=== PATIENT | male | born 1950 | race Caucasian/White ===

== ENCOUNTER 2018-04-15 04:52 | Inpatient (IN) | payer OTHER, MEDICAID ==
--- NOTE | 2018-04-15 05:05 | EDPHY ---
H & P Time Seen by Provider: 04/15/18 05:01 HPI/ROS: Chief Complaint: Shortness of breath HPI: 67-year-old male who appears older than his stated age is quite frail and thin. Patient has not seen a doctor since he had his cataract surgery 10 years ago. He states that he has been having shortness of breath for months but has been getting significantly worse over the last few days. He is not coughing. He also has a sensation of pain in the left side of his chest when he lays flat and feels that he needs to eat to feel better. He states that he can only eat a hamburger. No nausea or vomiting. He has had some foul-smelling urine recently. Occasionally gets fevers or chills. He states the majority was symptoms have been going on for months. Is not aware of any recent weight loss however states that he has always been quite thin. He does smoke about 8-10 cigarettes a day. Drinks 1 beer today. Denies any other drug use. ROS: 10 point Review of Systems is negative except as noted in the HPI. PMH: Denies Social History: Positive smoking, positive alcohol, denies other drug use Family History: non-contributory Physical Exam: Gen: Awake, Alert, unkempt, frail, appears older than stated age HEENT: Nose: no rhinorrhea Eyes: PERRLA, EOMI Mouth: Moist mucosa Neck: Supple, no JVD Chest: nontender, diffusely diminished breath sounds, no focal rhonchi Heart: S1, S2 normal, no murmur Abd: Soft, moderate lower abdominal tenderness, no guarding Back: no CVA tenderness, no midline tenderness Ext: no edema, non-tender Skin: no rash Neuro: CN II-XII intact, Sensation grossly intact, Strength 5/5 in bilateral upper and lower extremities Constitutional: Initial Vital Signs Temperature (C) 36.6 C 04/15/18 05:00 Heart Rate 129 H 04/15/18 05:00 Respiratory Rate 20 04/15/18 05:00 Blood Pressure 196/118 H 04/15/18 05:00 O2 Sat (%) 84 L 04/15/18 05:00 O2 Delivery Mode Nasal Cannula O2 (L/minute) 2 Allergies/Adverse Reactions: No Known Allergies Allergy (Unverified 04/15/18 05:07) Home Medications: Medication Instructions Recorded Aspirin 04/15/18 Medical Decision Making - Diagnostics EKG Interpretation: ECG time 5:01 a.m., sinus tachycardia with a rate of 118, fall G consistent with LVH with a prolonged QT interval. No acute ST or T-wave changes. ED Course/Re-evaluation: 67-year-old male with multiple medical complaints which been going on for a long time and a history of no medical care. He is hypoxemic and tachycardic. He is clinically dehydrated and cachectic. Will obtain laboratory evaluations and chest x-ray as per the initial evaluation. Patient's D-dimer is elevated. Chest x-ray and feels a large right upper mass. Will obtain CT scan for further evaluation. Chest x-ray is also consistent with significantly advanced emphysema. CT scan is noted. No PE however patient has a large likely primary bronchogenic carcinoma per radiologist. He is near effacement of his upper esophagus. Will discussed with the hospitalist for admission for further evaluation and care. - Data Points Laboratory Results: Laboratory Results 04/15/18 04:58 04/15/18 04:58 04/15/18 04/15/18 04/15/18 04:58 04:58 04:58 WBC 7.71 10^3/uL 10^3/uL (3.80-9.50) RBC 5.35 10^6/uL 10^6/uL (4.40-6.38) Hgb 15.6 g/dL g/dL (13.7-17.5) Hct 49.6 % % (40.0-51.0) MCV 92.7 fL fL (81.5-99.8) MCH 29.2 pg pg (27.9-34.1) MCHC 31.5 g/dL L g/dL (32.4-36.7) RDW 14.1 % % (11.5-15.2) Plt Count 337 10^3/uL 10^3/uL (150-400) MPV 9.1 fL fL (8.7-11.7) Neut % (Auto) 76.4 % H % (39.3-74.2) Lymph % (Auto) 14.5 % L % (15.0-45.0) [place] % (Auto) 5.8 % % (4.5-13.0) Eos % (Auto) 2.3 % % (0.6-7.6) Baso % (Auto) 0.9 % % (0.3-1.7) Nucleat RBC Rel Count 0.0 % % (0.0-0.2) Absolute Neuts (auto) 5.88 10^3/uL 10^3/uL (1.70-6.50) Absolute Lymphs (auto) 1.12 10^3/uL 10^3/uL (1.00-3.00) Absolute Monos (auto) 0.45 10^3/uL 10^3/uL (0.30-0.80) Absolute Eos (auto) 0.18 10^3/uL 10^3/uL (0.03-0.40) Absolute Basos (auto) 0.07 10^3/uL 10^3/uL (0.02-0.10) Absolute Nucleated RBC 0.00 10^3/uL 10^3/uL (0-0.01) Immature Gran % 0.1 % % (0.0-1.1) Immature Gran # 0.01 10^3/uL 10^3/uL (0.00-0.10) D-Dimer 1.39 ug/mLFEU H ug/mLFEU (0.00-0.50) Sodium 135 mEq/L mEq/L (135-145) Potassium 4.6 mEq/L mEq/L (3.3-5.0) Chloride 95 mEq/L L mEq/L (97-110) Carbon Dioxide 26 mEq/l mEq/l (22-31) Anion Gap 14 mEq/L mEq/L (8-16) BUN 21 mg/dL mg/dL (7-23) Creatinine 0.8 mg/dL mg/dL (0.7-1.3) Estimated GFR > 60 Glucose 134 mg/dL H mg/dL (70-100) Calcium 8.7 mg/dL mg/dL (8.5-10.4) Total Bilirubin 0.7 mg/dL mg/dL (0.1-1.4) AST 29 IU/L IU/L (17-59) ALT 23 IU/L IU/L (21-72) Alkaline Phosphatase 203 IU/L H IU/L (38-126) Troponin I 0.023 ng/mL ng/mL (0.000-0.034) Total Protein 7.2 g/dL g/dL (6.3-8.2) Albumin 3.7 g/dL g/dL (3.5-5.0) Lipase 114 IU/L IU/L (23-300) Medications Given: Discontinued Medications Sodium Chloride (Ns) 1,000 mls @ 0 mls/hr IV ONCE ONE; Wide Open PRN Reason: Protocol Stop: 04/15/18 06:12 Last Admin: 04/15/18 06:15 Dose: 1,000 mls Departure - Departure Disposition: [facility] Inpatient Acute Clinical Impression: COPD (chronic obstructive pulmonary disease), Lung mass, Malnutrition, Dehydration Condition: Fair Referrals: Patient,NotPresent [Primary Care Provider] - As per Instructions
--- NOTE | 2018-04-15 05:07 | CPEKG ---
Heart Rate: 118 RR Interval: 508 P-R Interval: 136 QRSD Interval: 94 QT Interval: 340 QTC Interval: 477 P [place]: 74 QRS [place]: 64 T Wave [place]: 67 EKG Severity - ABNORMAL ECG - EKG Impression: SINUS TACHYCARDIA EKG Impression: PROBABLE LEFT ATRIAL ABNORMALITY EKG Impression: PROBABLE LEFT VENTRICULAR HYPERTROPHY EKG Impression: BORDERLINE PROLONGED QT INTERVAL Electronically Signed By: Sang Colby 15-Apr-2018 06:04:29
[2018-04-15 05:14] LABS: PLATELET COUNT 337 10^3/uL (150-400)
[2018-04-15] MEDS ORDERED: IOPAMIDOL (ISOVUE 370) 100 ML BTL IV ONE (05:41)
[2018-04-15] MEDS ORDERED: NS 1,000 ML IV ONE (06:11)
[2018-04-15] MEDS ORDERED: ACETAMINOPHEN 650 MG SUPP PR PRN (07:11)
[2018-04-15] MEDS ORDERED: IPRATROPIUM/ALBUTEROL 3 ML DEYVIAL IH PRN (07:14)
[2018-04-15 07:24] LABS: INR 1.04 (0.83-1.16); PROTIME(PATIENT) 13.8 SEC (12.0-15.0)
[2018-04-15] MEDS: ONDANSETRON 4 MG/2 ML VIAL IVP PRN (07:55)
[2018-04-15] MEDS ORDERED: DIAZEPAM 5 MG/ML 1 ML SYR IVP ONE (10:27)
[2018-04-15] MEDS ORDERED: GADOBUTROL 10 ML VIAL IVP ONE (10:58)
[2018-04-15] MEDS ORDERED: LORazepam 2 MG/ML INJ IVP ONE (11:22)
[2018-04-15] MEDS: NS 1,000 ML IV SCH (14:27)
[2018-04-15] MEDS: NICOTINE 21 MG/24 HR PATCH TD SCH (14:33)
--- NOTE | 2018-04-15 14:50 | ASMTCMCOM ---
CM Note CM Note Notes: Pt presented to the ED via EMS for left sided chest pain, SOB, difficulty eating, insatiable appetite, intermittent fevers and chills, and weakness. Pt has not seen a medical provider in more than 20 years except for when he had cataracts surgery about 10 yrs ago. Pt's chest xray and CT scan showed a large right upper mass that might be primary bronchogenic carcinoma. Pt admitted for lung mass, hypoxia, COPD, malnutrition and dehydration. Spoke with patient and he states he lives alone in [place] and hasn't seen a doctor since he was 16 years old and in the [employer] (pt was in the [employer] for 3 yrs and states he chooses not to utilize the [facility] and so doesn't know if there would be any benefits available to him). Pt states he has a son and [id number] who live in [place]. He says he's in contact w/his D.I.L. at least once a week but that he doesn't want to contact them right now. Pt did not want to list either of them as emergency contacts at this time. Pt said his sister, Carol Westbrook ([phone]) (she lives in [place]) could be listed as Emergency Contact and that she would then communicate to his other family as needed . Pt did not want to contact Carol at this time. Listened as patient expressed his frustration with getting an MRI, "What's the point? I'm probably not going to even get a biopsy, because what would the point be?" We discussed that the imaging might be able to provide helpful information for prognosis, treatment options and if anything, to possibly rule out additional metastatic growth. Pt responded "well I'm not going to do anything about it anyway." We discussed his feelings surrounding the situation he is in and the recent news he received. Pt made statements such as "I did this to myself, I wore myself out. I smoked for 55 years and now here I am. I knew what you guys were going to tell me before I even came here. I am not shocked. It is what it is. None of us want to but we do." The patient also mentioned several times that he "wouldn't want to be kept alive" if treatment was futile. Pt stated he does not have an Advance Directive, MDPOA or Living Will. This CM offered to discuss, provide information and assist with completing an MDPOA but pt was not open to discussing this at this time, although he did state he wouldn't want his sister, Carol, to be MDPOA and that he most likely would want his son to be MDPOA. Patient also stated he "might not even give them a chance to have to make those decisions." This CM asked pt if he would explain what he was alluding to and pt stated "there are ways. Like jumping off a bridge." This CM offered to have someone from our Spiritual Services team to come and talk with him and pt stated "no, I'm not restorationist." This CM explained that their support would not be restorationist if he didn't want it to be and pt still declined at this time. Pt presents unkempt, frail. Pt mentioned that he didn't think he could return to live in his home and that "I need to go to a facility." Pt states he simply can't take care of his home anymore, it doesn't have AC, and that he is having increasing difficulty caring for himself. Pt mentioned he was incontinent last night but is able to ambulate independently. Pt has advanced emphysema, doesn't not use home oxygen and still smokes 8-10 cigarettes a day. Anticipate further workup from oncology and pulmonology consults. OT/SUPPLY CHAIN INTERN orders placed. Also discussion re: CODE status, MDPOA. Possible need for SNF, HC, Palliative Care, Hospice, etc....depending on prognosis and pt's wishes. CM to follow. Date Signed: 04/15/2018 02:49 PM Electronically Signed By:Salena Lovett RN
--- NOTE | 2018-04-15 14:52 | ASMTLACE ---
LUCIO Acuity / Level of Answers: Yes Care: Did the patient have an inpatient admission? Comorbidities - select Answers: Any tumor (including all that apply lymphoma or leukemia) Chronic pulmonary disease # of Emergency department Answers: 1-2 visits in the last 6 months Social determinants Answers: Lack of community resources and/or lack of social support (no pcp, lives alone, transportation, shane d) Score: 12 Date Signed: 04/15/2018 02:51 PM Electronically Signed By:Salena Lovett RN
--- NOTE | 2018-04-15 15:07 | GHP ---
[f rep st] HISTORY AND PHYSICAL DATE OF ADMISSION: 04/15/2018 CHIEF COMPLAINT: Shortness of breath. HISTORY OF PRESENT ILLNESS: The patient is a 67-year-old male who presented to the emergency room with complaint of shortness of breath. He appears frail and cachectic. The patient has not seen a doctor for approximately 10 years. He states that he has had been having progressively worsening shortness of breath over the last few days. He does not have a productive cough. He also complains that he has difficulty chewing his food and swallowing it. He states that he has had significant weight loss and is hungry all the time. He tells me that he is unable to lay flat without becoming severely short of breath as well as having a sensation of pain in the left side of his chest when he lays flat. He denies any nausea or vomiting. He denies any diarrhea. He denies any blurry vision. He tells me that occasionally he gets fevers and chills with rigors. He smokes approximately 8-10 cigarettes a day. He drinks 1-2 beers a day and denies any other drugs. REVIEW OF SYSTEMS: A comprehensive 10-point review of systems is negative other than noted in the HPI. PAST MEDICAL HISTORY: The patient denies. PAST SURGICAL HISTORY: Cataract surgery. SOCIAL HISTORY: The patient lives independently. He is a chronic tobacco user for over 50 years. He drinks alcohol on a daily basis. He denies any other drugs. He does have a son and obysapnj-vq-van who live in the area. His son works at [employer]. FAMILY HISTORY: Notable for mother who had coronary artery disease with CABG and father who of emphysema. PHYSICAL EXAM: GENERAL: The patient is alert, awake, unkempt, cachectic, and frail. VITAL SIGNS: Afebrile at 36.7, pulse is 105, respiratory rate is 20, blood pressure is 122/77. He is saturating 97% on 4 L. HEENT: Normocephalic. Mucosal membranes are moist. Pupils equal, round, reactive to light. NECK: Supple. No JVD noted. RESPIRATORY: Lungs are decreased in the bases bilaterally. No focal rhonchi noted. CARDIOVASCULAR: S1 and S2 of normal rate. GASTROINTESTINAL/ABDOMEN: Bowel sounds are positive. Soft and nontender. There is no guarding or rigidity noted. BACK: No CVA tenderness. No midline tenderness. EXTREMITIES: No clubbing or edema appreciated. SKIN: Without rashes or lesions. NEUROLOGIC: The patient is focally intact. ALLERGIES: None. HOME MEDICATIONS: Aspirin. LABORATORY EVALUATION: Alkaline phosphatase is elevated at 203. D-dimer is 1.39. CT scan with no PE, large right upper mass noted pushing on the esophagus. ASSESSMENT AND PLAN: The patient is a 67-year-old male who is being admitted the hospital secondary to complaints of shortness of breath. 1. Shortness of breath. CT shows new lung mass identified. As recommended, the patient will receive a biopsy of this lung mass. I have discussed this with Oncology as well as Pulmonology and Gastroenterology. It will be arranged for the patient to have a biopsy performed by Dr. Seth on 04/17/2018. Oncology has been consulted and will follow along once tissue and biopsy information is available. The patient expresses that he does not wish to have aggressive therapy and that he would like more information but may not choose chemotherapy or radiation treatment for his condition. 2. Dysphagia and significant weight loss. It appears that the mass is pressing on his esophagus. We will have Speech Therapy evaluate the patient during this hospitalization with recommendations to be made. 3. Nicotine abuse. A patch has been provided for him as well as cessation education. 4. Anxiety. We will continue to treat this with Ativan and Valium as needed. 5. Disposition. The patient will be admitted to inpatient status as his evaluation and workup will likely require more than 24 hours. 6. Emphysema with hypoxemic respiratory failure. Per CT and pulmonolgy consult. We will continue recommendations regarding this condition. 7. DVT prophylaxis will include Lovenox which will need to be held prior to the patient's potential biopsy. Further action and evaluation will be made based on the patient's hospitalization. I have personally discussed the patient's care with Dr. Dueñas, Pulmonology, as well as Dr. Renee Simon of Oncology and Dr. Dalton Crews of Gastroenterology. /[id number]/MODL MTDD
--- NOTE | 2018-04-15 16:49 | GCON ---
[f rep st] CONSULTATION DATE OF CONSULTATION: 04/15/2018 REFERRING PHYSICIAN: Mary Raymundo NP INDICATION FOR CONSULTATION: Abnormal CT scan with dysphagia, mediastinal mass. HISTORY OF PRESENT ILLNESS: The patient is a 67-year-old male with no significant past medical history, who has not seen a physician in over 10 years , who presented to the emergency room with increasing shortness of breath. He has had progressive shortness of breath, weakness, productive cough, and dysphagia. He is not sure if he has had weight loss. His son says he looks about the same as he has over the last year or so. His shortness of breath is worse when he lies down. He denies any fevers, but gets occasional chills. He has no chest pain, hematemesis, vomiting, diarrhea. He notes more difficulty swallowing solids than liquids. He had a CAT scan in the hospital today that showed a very large mediastinal mass that is compressing the esophagus, and I am called to help to see if we are able to biopsy this mediastinal mass. PAST MEDICAL HISTORY: He denies. PAST SURGICAL HISTORY: He has cataract surgery. He also has a skin graft on both legs and tonsillectomy as a child. MEDICATIONS: At home include an aspirin 325 mg a day, and that is it. ALLERGIES: No known drug allergies. SOCIAL HISTORY: He smoked for over 50 years. He drinks alcohol daily. His sons is in the room with him at the present time and lives in the area. FAMILY HISTORY: Mother with coronary artery disease. Father had emphysema, and there are no malignancies to his knowledge. REVIEW OF SYSTEMS: A complete review of systems was performed and is negative other than noted in the HPI. PHYSICAL EXAM: GENERAL: Chronically ill, cachectic male, sitting in bed, in no acute distress. VITAL SIGNS: Blood pressure is 122/77. Pulse is 98. Respirations are 18, 97% on 4 L nasal cannula. EYES: Anicteric. PERRL. EOMI. MOUTH: Edentulous. NECK: Supple. No JVD. BACK: No spine tenderness. No CVA tenderness. LUNGS: Egophony in the right. No rales or rhonchi heard. Minimal decreased breath sounds, both bases. CARDIAC: S1, S2. Regular rate and rhythm. No murmurs, rubs or gallops appreciated. ABDOMEN: Bowel sounds are normal in pitch and frequency. Soft, nontender. EXTREMITIES: No cyanosis, clubbing, or edema. He does have dry skin on his lower extremities. There are no rashes on his skin. NEUROLOGIC: Cranial nerves intact, nonfocal. SKIN: No stigmata of advanced liver disease. LABORATORY DATA: From today, WBC 7.71, hemoglobin 15.6, hematocrit 49.6, platelet count 337. Sodium 135, potassium 4.6, chloride 95, bicarb 26, BUN 21, creatinine 0.8, glucose 134, calcium 8.7, total bilirubin 0.7, AST 29, ALT 23, alkaline phosphatase 203. Troponin 0.023. Total protein 7.2, albumin 3.7, lipase 114. UA was negative. Pro time is 13.8. INR is 1.04. PTT is 30.5. He had a CT scan of the chest performed this morning at 5:38 that shows large right paramediastinal medial right lobe mass measuring 6.6 x 7.2 x 7.2 cm. Mass also completely effaces the upper thoracic esophagus. There is some mild mediastinal adenopathy. Chest x-ray obtained at 5:01 a.m. this morning showed large right sided mass, COPD, and right peribronchial wall thickening, borderline cardiomegaly. ASSESSMENT: 1. Large mediastinal mass. 2. Chronic obstructive pulmonary disease. 3. Tobacco abuse. 4. Dysphagia related to mass, compressing esophagus. RECOMMENDATIONS: 1. Will discuss with my partner, Dr. Seth, if he feels that this is able to be biopsied via endoscopic ultrasound. I think it will be since it compresses the esophagus, but I want him to review the imaging studies on the computer. I do not think he is available tomorrow. The first he would be available is likely on Thursday morning for this procedure. 2. Treatment of his other medical illnesses as per hospitalists. 3. Pending results of biopsy, patient may choose palliation, in which case he would likely need an esophageal stent. 4. Further recommendations to follow up results of above and clinical course. 5. Given the patient's medical illnesses, chronic obstructive pulmonary disease , and overall poor health, this will be a higher risk procedure than normal. The patient will be taken care of by Anesthesia during the procedure. Thank you for allowing me to participate in his healthcare. Do not hesitate to call me with any questions. /[id number]/MODL MTDD
[2018-04-15] MEDS: IPRATROPIUM/ALBUTEROL 3 ML DEYVIAL IH SCH (17:20)
[2018-04-15] MEDS: predniSONE 20 MG TAB PO SCH (17:34)
--- NOTE | 2018-04-15 18:19 | GCON ---
[f rep st] CONSULTATION PULMONARY/CRITICAL CARE CONSULTATION DATE OF CONSULTATION: 04/15/2018 REFERRING PHYSICIAN: Mary Raymundo NP REASON FOR REFERRAL: Evaluation and management of lung mass and emphysema. HISTORY OF PRESENT ILLNESS: The patient is a 67-year-old male who reports that he has been having so me dyspnea with exertion for the last several months to a year or so. It has been fairly mild, but h as been getting worse over the last few days. He has an infrequent cough that usually is not product lisette of sputum. He denies any recent fever. He has also been having some difficulty with swallowing. Reporting that he has to chew food more thoroughly or else he feels that it gets stuck in the back of his neck. He has had some weight loss and is feeling hungry all the time. He also has been having some difficu lty sleeping, in part because he goes to sleep and he is still hungry, but also in part because he garcia s difficulty lying on his side due to some nasopharyngeal reflux. 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 PAST MEDICAL HISTORY: None. MEDICATIONS: None. ALLERGIES: None. SOCIAL HISTORY: The patient lives independently. He has a long history of smoking and continues to smoke about a pack a day. He drinks alcohol on a daily basis. FAMILY HISTORY: Unremarkable. REVIEW OF SYSTEMS: A 10-point review of systems adds nothing to the History of Present Illness. PHYSICAL EXAMINATION: GENERAL: The patient is awake, alert, in no acute distress. VITAL SIGNS: Blo od pressure is 130/75 with a heart rate of 102. He is afebrile. Oxygen saturations are 95% on 4 L. HEENT: Normocephalic and atraumatic. He has a fistula in the left upper alveolar ridge. NECK: No adenopathy. Trachea is midline. CHEST: Decreased breath sounds bilaterally. CARDIAC: Regular ra te and rhythm without murmur. ABDOMEN: Soft, nontender. Bowel sounds are present. EXTREMITIES: N o clubbing, cyanosis, or edema. NEURO: The patient is awake and alert. He has no gross motor or se nsory deficits. LABORATORY: CBC is normal. Chemistry group is unremarkable. Glucose is 134, alkaline phosphatase i s 203. A CT scan of the chest shows extensive severe emphysema. He has a 6.6 x 7.2 cm mass in the right sup erior mediastinum. This abuts the trachea, but the trachea is patent. There is no discrete endobron chial component and no postobstructive atelectasis. The superior esophagus is completely collapsed. There is some mild peritracheal and precarinal adenopathy. There are some distal mucus plugs. Imag es reviewed by me. MRI of the brain shows some changes associated with small vessel ischemic disease, but no infarct and no evidence for intracranial metastases. ASSESSMENT: 1. Dyspnea. 2. Emphysema. This is severe by CT scan. This is related to his chronic smoking. This likely is a major contributor to his dyspnea. He has never been on any treatment for this. He is not having a discrete acute episode of bronchitis, but may respond to treatment for chronic obstructive pulmonary disease/emphysema. 3. Upper mediastinal mass. This is likely bronchogenic carcinoma from the right upper lobe, but ot er causes are superior mediastinal mass including lymphoma and esophageal cancer also possible. This mass could not be accessed through the lung bronchoscopically, but does abut the trachea and likely a transtracheal needle aspirate could be performed. However, this would be blind, as we do not have ultrasound capabilities. It is large enough and there are no vascular structures immediately adjacen t to it, so I think the risk is relatively low. However, the patient may have a higher yield with en dobronchial approach which could be done through the esophagus. It is also possible there could be i nvolvement/penetration of the presumed tumor into the esophagus. A transthoracic needle aspiration c ould be done, but this has a high risk of a pneumothorax. Given the patient's emphysema and the fact that several centimeters of lung would be transversed. Yield for this would be very high and it is likely that a better core could be obtained then from a needle aspiration bronchoscopically or with e ndoscopy. Mediastinoscopy is a final possibility that would be the most invasive procedure. Taking all this into account, I have discussed this with Dr. Crews and Dr. Seth who will review the studies and tentatively could do the procedure the day after tomorrow (Thursday). RECOMMENDATIONS: 1. Change DuoNeb from p.r.n. to scheduled. 2. Start prednisone for presumed chronic obstructive pulmonary disease exacerbation. 3. Dr. Seth to review and consider upper endoscopy. If he does not think this is likely to be high- yield or the optimal approach, we can reconsider bronchoscopy, transthoracic needle aspiration, or me diastinoscopy. /[id number]/MODL
[2018-04-15] MEDS: LORazepam 2 MG/ML INJ IVP PRN (21:25)
[2018-04-16] MEDS: IPRATROPIUM/ALBUTEROL 3 ML DEYVIAL IH SCH ×5 (01:53→22:38)
[2018-04-16] MEDS: NS 1,000 ML IV SCH ×2 (04:25→20:44)
[2018-04-16] MEDS: predniSONE 20 MG TAB PO SCH (08:04)
[2018-04-16] MEDS: NICOTINE 21 MG/24 HR PATCH TD SCH (08:06)
[2018-04-16] MEDS: ENOXAPARIN 40 MG/0.4 ML SYR SC SCH ×2 (08:06→09:00)
--- NOTE | 2018-04-16 12:50 | SOAPPROG ---
SOAP Progress Note Assessment/Plan: Assessment:Plan: 1) mediastinal mass, prob lung cancer 2) COPD 3) dysphagia from mediastinal mass he agrees to EGD/EUS today at 3:30 pm I am arranging for Dr. Seth to get this done today 04/16/18 12:47 Subjective: CC- large mediastinal mass causing compression of the esoph he is a bit despondent, but agreeable to getting dx Objective: Vital Signs Temp Pulse Resp BP Pulse Ox 36.4 C 98 18 151/82 H 95 04/16/18 12:00 04/16/18 12:39 04/16/18 12:39 04/16/18 12:00 04/16/18 12:39 04/15/18 04/16/18 04/17/18 05:59 05:59 05:59 Intake Total 1704 Output Total 400 Balance 1304 PT 13.8 SEC (12.0-15.0) 04/15/18 04:58 INR 1.04 (0.83-1.16) 04/15/18 04:58 A+Ox3 S1S2 coarse BS +BS, soft nt Laboratory Tests 04/15/18 04/15/18 04:58 04:58 Plt Count 337 PT 13.8 INR 1.04 ICD10 Worksheet Patient Problems: Problems Problem Status Onset COPD (chronic obstructive pulmonary disease) Acute Dehydration Acute Lung mass Acute Malnutrition Acute
[2018-04-16] MEDS ORDERED: LR 1,000 ML IV ONE (15:12)
[2018-04-16] MEDS ORDERED: CITRIC ACID/SODIUM CITRATE 30 ML UDCUP ONE (15:40)
[2018-04-16] MEDS ORDERED: CITRIC ACID/SODIUM CITRATE 30 ML UDCUP PO ONE (15:40)
[2018-04-16] MEDS ORDERED: MIDAZOLAM 2 MG/2 ML VIAL IVP ONE (15:40)
--- NOTE | 2018-04-16 15:41 | PDANEPAE ---
ANE Past Medical History - Cardiovascular History Hx Hypertension: No Hx Arrhythmias: No Hx Chest Pain: No Hx Coronary Artery / Peripheral Vascular Disease: No Hx CHF / Valvular Disease: No Hx Palpitations: No - Pulmonary History Hx COPD: Yes Hx Asthma/Reactive Airway Disease: No Hx Recent Upper Respiratory Infection: Yes Hx Oxygen in Use at Home: No Hx Sleep Apnea: No Sleep Apnea Screening Result - Last Documented: Negative - Endocrine History Hx Diabetes: No Hypothyroid: No Hyperthyroid: No Obesity: no - Chronic Pain History Chronic Pain: No ANE Review of Systems Review of Systems: ANE Patient History - Allergies Allergies/Adverse Reactions: No Known Allergies Allergy (Unverified 04/15/18 05:07) - Home Medications Home Medications: Aspirin [Aspirin 325 mg (*)] 325 mg PO QID PRN 04/15/18 [Last Taken Unknown] Multivitamins [Multivitamin (*)] 1 each PO DAILY 04/15/18 [Last Taken Unknown] - NPO status NPO Since - Liquids (Date): 04/16/18 NPO Since - Liquids (Time): 08:30 NPO Since - Solids (Date): 04/16/18 NPO Since - Solids (Time): 08:30 - Smoking Hx Smoking Status: Heavy smoker ANE Labs/Vital Signs - Labs Result Diagrams: 04/15/18 04:58 04/15/18 04:58 - Vital Signs Blood Pressure: 156/80 Heart Rate: 107 Respiratory Rate: 18 O2 Sat (%): 97 Height: 170.18 cm Weight: 53.9 kg ANE Physical Exam - Airway Neck exam: decreased ROM Mallampati Score: Class 1 Mouth exam: poor dentition, zapien - Pulmonary Pulmonary: reduced air movement, inspiratory crackles - Cardiovascular Cardiovascular: regular rate and rhythym - ASA Status ASA Status: III ANE Anesthesia Plan Anesthesia Plan: general endotracheal anesthesia
[2018-04-16] MEDS ORDERED: MIDAZOLAM 2 MG/2 ML VIAL ONE (15:43)
[2018-04-16] MEDS ORDERED: PROPOFOL 200 MG/20 ML VIAL ONE (15:47)
[2018-04-16] MEDS ORDERED: fentaNYL 100 MCG/2 ML INJ ONE (15:48)
[2018-04-16] MEDS ORDERED: SUCCINYLCHOLINE CHLORIDE 200 MG/10 ML SYR IVP ONE ×2 (16:24)
[2018-04-16] MEDS ORDERED: LIDOCAINE 2% 5 ML SDV ONE (16:24)
[2018-04-16] MEDS ORDERED: PHENYLEPHRINE HCL 100 MCG/ML SYR ONE (16:33)
[2018-04-16] MEDS ORDERED: epHEDrine SULFATE 10 MG/ML SYR ONE (16:34)
[2018-04-16] MEDS ORDERED: LR 500 ML IV PRN (17:18)
[2018-04-16] MEDS ORDERED: LABETALOL HCL 5 MG/ML 20 ML MDV IVP PRN (17:18)
[2018-04-16] MEDS ORDERED: ONDANSETRON 4 MG/2 ML VIAL IVP PRN (17:18)
[2018-04-16] MEDS ORDERED: fentaNYL 100 MCG/2 ML INJ IVP PRN (17:18)
[2018-04-16] MEDS ORDERED: ALBUTEROL 3 ML DEYVIAL IH PRN (17:18)
[2018-04-16] MEDS ORDERED: NALOXONE HCL 0.4 MG/ML INJ IVP PRN (17:18)
--- NOTE | 2018-04-16 17:20 | POSTANESTH ---
Post Anesthetic Evaluation Cardiovascular Status: Normal, Stable Respiratory Status: Similar to Pre-op Cond. Level of Consciousness/Mental Status: Mildly Sleepy, Arousable Pain Control: Adequate, Prn Tx Ordered Nausea/Vomiting Control: Adequate, Prn Tx Ordered Complications Possibly Related to Anesthesia: None Noted
--- NOTE | 2018-04-16 17:33 | SOAPPROG ---
SOAP Progress Note Assessment/Plan: Assessment: Plan: 04/16/18 17:17 GI note S/p EGD/EUS with FNA and FNB. + malignancy. FNB performed with visible core seen. By echocriteria, +lymph nodes. No esophageal compression noted. Ok to restart diet. See dictated report for details. Objective: Vital Signs Temp Pulse Resp BP Pulse Ox 36.7 C 107 H 18 156/80 H 97 04/16/18 15:04 04/16/18 15:41 04/16/18 15:41 04/16/18 15:41 04/16/18 15:41 04/15/18 04/16/18 04/17/18 05:59 05:59 05:59 Intake Total 1704 Output Total 400 400 Balance 1304 -400 PT 13.8 SEC (12.0-15.0) 04/15/18 04:58 INR 1.04 (0.83-1.16) 04/15/18 04:58 ICD10 Worksheet Patient Problems: Problems Problem Status Onset COPD (chronic obstructive pulmonary disease) Acute Lung mass Acute Malnutrition Acute Dehydration Acute
--- NOTE | 2018-04-16 17:41 | ASMTCMCOM ---
CM Note CM Note Notes: Met w/pt to discuss dc options. He stated that he would need facility to go to as he cannot manage at home alone. He stated that he does have some friends/family local but they are not really able to be around and help. Pt said he would consider [facility]. He said that he would need detention care and stated "because I am dying". He is still being worked up; bx and CT scan today. Discussed case w/Sue from [facility]; she was not able to meet w/pt as he was in procedure. CM will follow. Date Signed: 04/16/2018 05:40 PM Electronically Signed By:Felicia Soni RN
--- NOTE | 2018-04-16 18:08 | HOSPPROG ---
Hospitalist Progress Note Assessment/Plan: 67 yo M with limiged prior medical care pw sob found to have large lung mass # lung mass: on personal reivew of CT noted to have large r paramediastinal RUL mass c/w bronchogenic carcinoma. 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 Plan for EGD/EUS biopsy today. # severe COPD: with chcf tobacco use and severe emphysematous change noted on imagin, BD as needed, RT # dysphagia and weight loss: with large mass pressing on esophagus and related to same, GI/RUG CUTTER involved # SPCM: with BMI of 18, significant unintentional weight loss with presumed underlying cancer, dietary consult # tobacco abuse: nicotine patch # IP status, will need > 48 hours stay for eval/mgmt of above Patient new to my care. Care plna reviewed with SPECIAL PROCEDURE TECHNOLOGIST Arsalan as aboveve. Subjective: no significant overnight events paitent for eus today Objective: Vital Signs Temp Pulse Resp BP Pulse Ox 36.6 C 107 H 22 H 134/79 H 97 04/16/18 17:31 04/16/18 15:41 04/16/18 17:51 04/16/18 17:51 04/16/18 17:51 04/15/18 04/16/18 04/17/18 05:59 05:59 05:59 Intake Total 1704 625 Output Total 400 400 Balance 1304 225 PT 13.8 SEC (12.0-15.0) 04/15/18 04:58 INR 1.04 (0.83-1.16) 04/15/18 04:58 awake laert anicteric poor dentition rrr dec at bases soft nt nd no cce warm dry ICD10 Worksheet Patient Problems: Problems Problem Status Onset COPD (chronic obstructive pulmonary disease) Acute Lung mass Acute Malnutrition Acute Dehydration Acute
[2018-04-16] MEDS: HYDROmorphONE/DILAUDID 1 MG/ML INJ IVP PRN (20:53)
[2018-04-16] MEDS: LORazepam 2 MG/ML INJ IVP PRN (23:41)
--- NOTE | 2018-04-17 05:11 | GPN ---
[f rep st] PROCEDURE NOTE DATE OF PROCEDURE: 04/16/2018 PROCEDURE: Esophagogastroduodenoscopy with biopsy, endoscopic ultrasound with fine-needle aspiration. INDICATIONS: Tyrel is a 67-year-old male presents for evaluation of a mediastinal mass as well as dysphagia. He presents for possible tissue acquisition. CONSENT: Risks, benefits, and alternatives of the procedure were discussed in great detail with the patient. Risk of infection, bleeding, perforation, and sedation were discussed. All questions answered. Informed consent obtained. MEDICATIONS: General anesthesia. Please see Anesthesia record for details. ESTIMATED BLOOD LOSS: Insignificant. ESOPHAGOGASTRODUODENOSCOPY EXAMINATION: The Olympus upper endoscope was inserted in the mouth and advanced to the esophagus. The proximal and mid esophagus was normal in appearance. No luminal compression was noted. At the gastroesophageal junction the mucosa was mildly nodular. Biopsies taken. The stomach was entered and closely examined, including retroflexed views of the angularis, cardia and fundus. A hiatal hernia was noted. The mucosa in the antrum and stomach was mildly nodular and erythematous and biopsies were taken. The duodenal bulb and second portion were normal in appearance. ENDOSCOPIC ULTRASOUND EXAMINATION: The Olympus linear echoendoscope was introduced into the mouth and advanced to the 2nd portion the duodenum. The esophagus, stomach, and duodenum were visualized endosonographically. In the upper to mid esophagus, a large hypoechoic mass was seen. It measured approximately 6 cm x 5 cm. It had well-defined margins. Doppler was used to rule out intervening vessels. Two transesophageal passes were made with a [employer] 25-gauge needle. Cytology was present and adequate cellularity was confirmed. Two additional passes were made with a [employer] 22-gauge fine-needle biopsy needle into the lesion. Visible cores were noted. Multiple periesophageal/peritracheal lymph nodes were noted which measured approximately 1-2 cm in size. They were hypoechoic with well-defined margins. By echo criteria they were positive for involvement. No obvious liver lesions were noted. The common bile duct was seen and was without stone, stricture, or stenosis. The pancreas was carefully examined from the uncinate process to the tail where the spleen was seen. The pancreatic parenchyma had hyperechoic foci, dilated side branches with hyperechoic jaimes. IMPRESSION: 1. Mediastinal mass- status post FNA and FNB. Suspected rosaura involvement. 2. Irregular Z-line status post biopsy. 3. Nodular mucosa in the distal stomach, status post biopsy. RECOMMENDATIONS: 1. Await FNA, FNB results. 2. Await pathology results. 3. Advance diet. /[id number]/MODL MTDD
[2018-04-17] MEDS: IPRATROPIUM/ALBUTEROL 3 ML DEYVIAL IH SCH ×5 (06:10→23:38)
[2018-04-17] MEDS: predniSONE 20 MG TAB PO SCH (09:30)
[2018-04-17] MEDS: NICOTINE 21 MG/24 HR PATCH TD SCH (09:31)
[2018-04-17] MEDS: ENOXAPARIN 40 MG/0.4 ML SYR SC SCH (09:32)
[2018-04-17] MEDS: NS 1,000 ML IV SCH (10:15)
[2018-04-17] MEDS ORDERED: IOPAMIDOL (ISOVUE-300) 100 ML BTL ONE (10:19)
--- NOTE | 2018-04-17 11:37 | SOAPPROG ---
SOAP Progress Note Assessment/Plan: Assessment: Plan: 04/16/18 17:17 GI note S/p EGD/EUS with FNA and FNB. + malignancy. FNB performed with visible core seen. By echocriteria, +lymph nodes. No esophageal compression noted. Ok to restart diet. See dictated report for details. 04/17/18 11:35 A/P 1. Mediastinal mass- s/p EUS with FNA and FNB. Preliminary positive. Suspect lung ca. No esophageal compression noted. No apparent complications of procedure. Discussed diagnosis with patient. Also discussed with oncology. GI will sign off. Thank you for the consultation! Subjective: cc: Follow up mediastinal mass No complaints. Objective: Vital Signs Temp Pulse Resp BP Pulse Ox 36.6 C 107 H 18 150/89 H 96 04/17/18 07:28 04/17/18 11:23 04/17/18 11:23 04/17/18 07:28 04/17/18 11:23 04/16/18 04/17/18 04/18/18 05:59 05:59 05:59 Intake Total 1704 1690 Output Total 400 900 Balance 1304 790 PT 13.8 SEC (12.0-15.0) 04/15/18 04:58 INR 1.04 (0.83-1.16) 04/15/18 04:58 Physical Exam - Physical Exam General Appearance: alert, no apparent distress EENT: No scleral icterus (R), No scleral icterus (L) Respiratory: decreased breath sounds (coarse breath sounds) Cardiac/Chest: regular rate, rhythm Abdomen: normal bowel sounds, non-tender, soft, No guarding Skin: normal color, No diaphoresis, No jaundice Neuro/Psych: alert ICD10 Worksheet Patient Problems: Problems Problem Status Onset COPD (chronic obstructive pulmonary disease) Acute Dehydration Acute Lung mass Acute Malnutrition Acute
--- NOTE | 2018-04-17 15:08 | ASMTCMCOM ---
CM Note CM Note Notes: CM spoke with Sue at [facility] early in the day results and informed her around 1400 needs are TBD and asked Sue to check in with CM prior to contacting the patient. CM spoke with Ani RN, bx results preliminary positive, suspect lung CA. Ani shares sister Carol lives out of state [phone] and informed RN her son found a suicide note at patients home. CM did not get to speak with patient today. PT/OT ordered. CM to follow. Date Signed: 04/17/2018 03:08 PM Electronically Signed By:Cristina Baltazar
--- NOTE | 2018-04-17 15:42 | HOSPPROG ---
Hospitalist Progress Note Assessment/Plan: Subjective Follow-up on lung mass No acute events overnight. Patient is status post endoscopic biopsy of lung mass. We discussed were awaiting the final pathology reports. Objective Vital signs 36.8 blood pressure 135/90 heart rate 104 respirations 22 satting 96% 2 L nasal cannula Physical exam General-patient appears comfortable he is awake alert conversant sitting in bed. No acute distress Heart-regular rate and rhythm no murmurs appreciated Lungs-normal respiratory effort with mild wheezing and crackles throughout all lung an Abdomen-nondistended nontender Extremities-no significant pitting edema Musculoskeletal-no calf pain with palpation Labs as detailed below Assessment plan 1. Lung mass-patient was found to have a right upper lobe mass on CT imaging measuring greater than 7.0 cm. Endoscopic biopsy has been completed and bladder results are suggestive of underlying malignancy. Await final results and will discuss with Oncology. 2. Hepatic lesion-this could be a metastatic lesion. It does appear amenable to image guided biopsy. Will discuss with Oncology before proceeding. 3. Dysphagia-this may be related to the mediastinal mass in adenopathy. 4. Chronic hypoxic respiratory failure secondary to COPD-continue continuous oxygen at 2 L which is his baseline. 5. DVT prophylaxis-patient is currently on Lovenox. 6. Disposition-wound valve PT and OT in his care. Will need to work with case management regarding his home situation and best place for placement after discharge. Objective: Vital Signs Temp Pulse Resp BP Pulse Ox 36.6 C 106 H 22 H 158/96 H 95 04/17/18 15:28 04/17/18 15:28 04/17/18 15:28 04/17/18 15:28 04/17/18 15:28 04/16/18 04/17/18 04/18/18 05:59 05:59 05:59 Intake Total 1704 1690 Output Total 400 900 520 Balance 1304 790 -520 PT 13.8 SEC (12.0-15.0) 04/15/18 04:58 INR 1.04 (0.83-1.16) 04/15/18 04:58 ICD10 Worksheet Patient Problems: Problems Problem Status Onset COPD (chronic obstructive pulmonary disease) Acute Dehydration Acute Lung mass Acute Malnutrition Acute
--- NOTE | 2018-04-17 16:53 | GCON ---
[f rep st] CONSULTATION I was asked by Dr. Seth to evaluate this 67-year-old male with weight loss and presumed lung carcinom a. This 67-year-old male presented to the emergency room with shortness of breath which had been gra dually progressive. He had also noted a significant weight loss. A chest x-ray on admission showed a large right superior mediastinal mass. It also showed COPD and borderline cardiomegaly. A CT scan of the chest done with CT angiogram showed no evidence of clot. It confirmed a large right paramedi astinal right upper lobe mass measuring 6.6 x 7.2 x 7.2 cm with significant emphysema. There was eff acement of the upper thoracic esophagus and mild mediastinal adenopathy. A subsequent CT of the abdo men showed a 6.2 cm mass within the inferior aspect of the right hepatic lobe, possibly representing either hepatoma or a metastatic lesion. There were small pleural effusions and minimal peritoneal fl uid. PAST MEDICAL HISTORY: Significant for a long history of cigarette use. FAMILY HISTORY: Father of emphysema. REVIEW OF SYSTEMS: Otherwise negative for 10 systems except as discussed in the HPI. PHYSICAL EXAMINATION: GENERAL: He is a thin, cachectic-appearing male. He is quite alert. VITAL S IGNS: Blood pressure 153/98, pulse 104, respiratory rate 22, temperature is 98.2. HEENT: He is not icteric. LUNGS: Breath sounds are decreased bilaterally. CARDIAC: Normal S1, S2. ABDOMEN: Andres gn without organomegaly. NEUROLOGIC: Exam is focally intact. LABORATORY DATA: The patient's CBC is generally unremarkable. Chemistry panel shows an elevated alk ginna phosphatase of 203. MRI of the brain shows white matter changes but no metastasis. He underwent an upper GI endoscopy an d endoscopic ultrasound by Dr. Seth. The mediastinal mass was biopsied. He also noted a nodular muc naun in the distal stomach. There are a number of other paraesophageal and peritracheal lymph nodes i n the 1-2 cm size. Biopsies are pending. IMPRESSION: Patient with weight loss, cachexia, lung mass, and liver mass. I would suspect a primar y lung cancer. The liver lesion could be metastasis or a primary liver tumor. I discussed this at [facility] with the patient. He is quite convinced that he does not desire any aggressive treatment of hi s condition and expressed repeatedly his interest in the right to legislation. I think it would be reasonable to review his pathology when available and schedule a palliative care consultation. r service will follow with you. /[id number]/MODL
[2018-04-17] MEDS: LORazepam 2 MG/ML INJ IVP PRN (21:36)
[2018-04-17] MEDS: HYDROmorphONE/DILAUDID 1 MG/ML INJ IVP PRN (21:37)
[2018-04-18] MEDS: HYDROmorphONE/DILAUDID 1 MG/ML INJ IVP PRN ×2 (03:51→20:54)
[2018-04-18 04:11] LABS: PLATELET COUNT 275 10^3/uL (150-400)
[2018-04-18] MEDS: NS 1,000 ML IV SCH (05:45)
[2018-04-18] MEDS: IPRATROPIUM/ALBUTEROL 3 ML DEYVIAL IH SCH ×2 (06:09→11:49)
[2018-04-18] MEDS: predniSONE 20 MG TAB PO SCH (08:46)
[2018-04-18] MEDS: ENOXAPARIN 40 MG/0.4 ML SYR SC SCH (08:49)
[2018-04-18] MEDS: NICOTINE 21 MG/24 HR PATCH TD SCH (10:26)
[2018-04-18] MEDS ORDERED: MAGNESIUM CITRATE 300 ML BOTTLE PO PRN (10:51)
[2018-04-18] MEDS: POLYETHYLENE GLYCOL 3350 17 GM PKT PO SCH (11:26)
--- NOTE | 2018-04-18 12:54 | HOSPPROG ---
Hospitalist Progress Note Assessment/Plan: Subjective Follow-up on lung mass No acute events overnight. After discussions with Oncology patient states he is not inclined to do any aggressive treatment. I did discuss with him today about code status in regards to how aggressive he would want to be in regards to having CPR done if his heart stops or be intubated if he developed any respiratory distress. He was clear with me that he wanted to be do not attempt resuscitation code status service place this order today. Otherwise reviewed diet we are awaiting a biopsy results and then can make support was making a plan for him. Objective Vital Signs Temperature 37.0 blood pressure 156/93 heart rate 97 respirations 19 satting 97 % on 3 L nasal cannula Physical exam General-patient was awake alert conversant no acute distress. Heart-regular rate and rhythm no murmurs appreciated Lungs-normal respiratory effort with less wheezing and crackles today as compared to yesterday's exam. Abdomen-soft nontender nondistended. Extremities-no significant pitting edema Musculoskeletal no calf pain with palpation Labs as detailed below Assessment plan 1. Lung mass-patient was found to have a right upper lobe mass on CT measuring greater than 7.0 cm. Endoscopic biopsy has been completed and pulmonary results are suggestive of underlying malignancy. Await final results however at this time the patient is not inclined towards any treatment. Code status was also changed today per my discussion with the patient. 2. Hepatic lesion-this could be metastatic lesion. For now will hold on any attempt words biopsy as patient does not seem to be inclined to words aggressive medical care. 3. Dysphagia-likely related to mediastinal adenopathy. He seems to be tolerating oral intake reasonably well here in the hospital. 4. Chronic hypoxic respiratory failure secondary to COPD-continue continuous oxygen at 2 L which is his baseline. He is also on prednisone at this time at 40 mg daily. His lung exam is improved today will continue this for another 1- 2 more days. 5. DVT prophylaxis-patient is currently on Lovenox. 6. Disposition-continue work with PT and OT. I did have discussion with him today as well regarding returning back to home. The patient does not feel like he is going to be strong enough to return back to his home so will discuss with case management about placement options. Objective: Vital Signs Temp Pulse Resp BP Pulse Ox 37 C 99 14 156/93 H 99 04/18/18 08:45 04/18/18 11:52 04/18/18 11:52 04/18/18 08:45 04/18/18 11:52 Laboratory Results 04/18/18 03:54 04/18/18 03:54 04/17/18 04/18/18 04/19/18 05:59 05:59 05:59 Intake Total 1690 800 Output Total 900 1920 420 Balance 790 -1120 -420 PT 13.8 SEC (12.0-15.0) 04/15/18 04:58 INR 1.04 (0.83-1.16) 04/15/18 04:58 ICD10 Worksheet Patient Problems: Problems Problem Status Onset COPD (chronic obstructive pulmonary disease) Acute Dehydration Acute Lung mass Acute Malnutrition Acute
--- NOTE | 2018-04-18 12:56 | SOAPPROG ---
SOAP Progress Note Assessment/Plan: Assessment: 1. suspected lung cancer 2. liver mass 3. Copd 4. wt loss cachexia Plan:Await biopsy results, pallaitve care consult, suspect he will need placement, DNR 04/18/18 12:54 Objective: Vital Signs Temp Pulse Resp BP Pulse Ox 98.6 F 99 14 156/93 H 99 04/18/18 08:45 04/18/18 11:52 04/18/18 11:52 04/18/18 08:45 04/18/18 11:52 Laboratory Results 04/18/18 03:54 04/18/18 03:54 04/17/18 04/18/18 04/19/18 05:59 05:59 05:59 Intake Total 1690 800 Output Total 900 1920 420 Balance 790 -1120 -420 PT 13.8 SEC (12.0-15.0) 04/15/18 04:58 INR 1.04 (0.83-1.16) 04/15/18 04:58 Physical Exam - Physical Exam General Appearance: cachetic ICD10 Worksheet Patient Problems: Problems Problem Status Onset COPD (chronic obstructive pulmonary disease) Acute Dehydration Acute Lung mass Acute Malnutrition Acute
--- NOTE | 2018-04-18 15:40 | PDINTPN ---
Receiving Weigher Progress Note Assessment/Plan: Assessment: Mediastinal mass: Bx (+) malignancy. Suspect lung cancer. Non-obstructing. ? hepatic met. He's not interested in pursuing agressive Rx. COPD: Severe emphysema by CT. On DuoNeb and prednisone. Plan: Taper prednisone, probably can d/c at discharge. Change inhalers to Spiriva and PRN albuterol, which would be a reasonable outpatient Rx. 04/18/18 15:38 04/18/18 15:42 Subjective: Feels breathing is a bit better, but can't tell if DuoNebs are helping. Coughs up sputum fairly frequently, breathing better after he expectorates. Objective: Vital Signs Temp Pulse Resp BP Pulse Ox 36.8 C 94 18 144/83 H 95 04/18/18 14:57 04/18/18 14:57 04/18/18 14:57 04/18/18 14:57 04/18/18 14:57 Laboratory Results 04/18/18 03:54 04/18/18 03:54 04/17/18 04/18/18 04/19/18 05:59 05:59 05:59 Intake Total 1690 800 Output Total 900 1920 420 Balance 790 -1120 -420 PT 13.8 SEC (12.0-15.0) 04/15/18 04:58 INR 1.04 (0.83-1.16) 04/15/18 04:58 CT Abd: 6.2 cm mass, ? metastasis. Images reviewed by me. Mediastinal Bx preliminary path (+) malignancy Physical Exam - Physical Exam General Appearance: alert, no apparent distress EENT: normal ENT inspection Neck: normal inspection Respiratory: lungs clear, decreased breath sounds Cardiac/Chest: regular rate, rhythm, No edema Abdomen: normal bowel sounds, non-tender Skin: normal color, warm/dry Extremities: normal inspection Neuro/Psych: alert, normal mood/affect, oriented x 3 ICD10 Worksheet Patient Problems: Problems Problem Status Onset COPD (chronic obstructive pulmonary disease) Acute Dehydration Acute Lung mass Acute Malnutrition Acute
[2018-04-18] MEDS ORDERED: ALBUTEROL 60 PUFFS/8 GM MDI IH PRN (15:41)
[2018-04-18] MEDS: TIOTROPIUM INHALER 18 MCG/DOSE 5 DOSE/MDI IH SCH (16:16)
[2018-04-18] MEDS: SENNOSIDES 1 TAB PO SCH ×2 (20:54→20:55)
[2018-04-18] MEDS: LORazepam 2 MG/ML INJ IVP PRN (20:54)
[2018-04-19] MEDS: ONDANSETRON 4 MG/2 ML VIAL IVP PRN (02:28)
[2018-04-19] MEDS: HYDROmorphONE/DILAUDID 1 MG/ML INJ IVP PRN ×4 (02:28→20:57)
[2018-04-19] MEDS: TIOTROPIUM INHALER 18 MCG/DOSE 5 DOSE/MDI IH SCH (08:40)
[2018-04-19] MEDS: NICOTINE 21 MG/24 HR PATCH TD SCH (09:12)
[2018-04-19] MEDS: POLYETHYLENE GLYCOL 3350 17 GM PKT PO SCH ×2 (09:12→09:18)
[2018-04-19] MEDS: predniSONE 20 MG TAB PO SCH (09:12)
[2018-04-19] MEDS: ENOXAPARIN 40 MG/0.4 ML SYR SC SCH (09:13)
[2018-04-19] MEDS ORDERED: fentaNYL 12 MCG PATCH TD SCH (10:00)
--- NOTE | 2018-04-19 10:04 | SOAPPROG ---
SOAP Progress Note Assessment/Plan: Assessment: 1.) Lung mass, suspected primary lung malignancy, biopsy pending. 2.) Pain control- see above 3.) Discharge planning- may need SNF placement. Plan: 1.) Add Fentanyl 12 mcg transdermal analgesia 2.) Await biopsy findings. 3.) Investigate SNF placement. It appears that this patient does not want active intervention if/when malignancy is confirmed. 4.) Will recheck. Pt. may be good candidiate for Hospice referral. 04/19/18 10:01 Subjective: Still with quite a bit of pain in posterior chest region. Objective: Afebrile, VSS HEENT- no facial assymetry, no oral thrush Neck- supple Chest- clear anteriorly CVS- RSR, no extra HS ABD- soft NT no mass or HSM, BS+ EXT- no edema, skin intact, no ecchymoses, petechiae Vital Signs Temp Pulse Resp BP Pulse Ox 36.6 C 89 14 147/85 H 97 04/19/18 08:00 04/19/18 08:41 04/19/18 08:41 04/19/18 08:00 04/19/18 08:41 Laboratory Results 04/18/18 03:54 04/18/18 03:54 04/18/18 04/19/18 04/20/18 05:59 05:59 05:59 Intake Total 800 650 Output Total 1920 1270 400 Balance -1120 -620 -400 PT 13.8 SEC (12.0-15.0) 04/15/18 04:58 INR 1.04 (0.83-1.16) 04/15/18 04:58 ICD10 Worksheet Patient Problems: Problems Problem Status Onset COPD (chronic obstructive pulmonary disease) Acute Dehydration Acute Lung mass Acute Malnutrition Acute
[2018-04-19] MEDS: morphINE SR 15 MG TAB PO SCH ×2 (10:24→20:56)
--- NOTE | 2018-04-19 11:04 | ASMTCMCOM ---
CM Note CM Note Notes: Chart reviewed for dc planning purposes. Met with patient who states he does not want treatment to prolong his life. He has a son Augustine who would be his general hardware salesperson and likely MDPOA. I will ask [facility] to assist with that process. Biopsy of lung pending. Palliative care pending. Will need SNF/Hospice. Plan: TBD Date Signed: 04/19/2018 11:04 AM Electronically Signed By:Karen Roger RN
--- NOTE | 2018-04-19 11:39 | ASMTCMCOM ---
CM Note CM Note Notes: Leonard from [facility] is going to smita Serrano for meeting at 2:30 today as Tyrel's son Augustine will be visiting at that time. I conveyed this information to Tyrel as well. Spoke with Sue from [facility] and she states she is willing to accept patient. CM to follow Date Signed: 04/19/2018 11:38 AM Electronically Signed By:Karen Roger RN
--- NOTE | 2018-04-19 16:26 | HOSPPROG ---
Hospitalist Progress Note Assessment/Plan: Subjective Follow-up on lung mass No acute events overnight. Patient is not having any respiratory complaints today of worsening shortness of breath. His prednisone was tapered down to 20 mg daily yesterday. Biopsy results are still currently pending. Discussions are moving the direction of a palliative approach as patient does not desire any aggressive treatment. Objective Vital signs Temperature 36.7 blood pressure is 145/85 heart rate 111 respirations 20 satting 97% on 2 L Physical exam General-patient was awake alert conversant no acute distress Heart-regular rate and rhythm no murmurs appreciated Lungs-normal respiratory effort with slight crackles at both lungs less wheezing as compared to days prior Abdomen-soft nontender nondistended -no Santillan catheter in place Extremities-no significant pitting edema Labs as detailed below Assessment plan 1. Lung mass -biopsy results are still pending. The patient was found to have a right upper lobe lung mass on CT measuring greater than 7.0 cm. Endoscopic biopsy has been completed and the pulmonary results are suggestive of underlying malignancy. The patient is not inclined towards any treatment at this point time. He is favoring a palliative care course. Code status was discussed with the patient yesterday as well and he has a DNAR. 2. Hepatic lesion-this could be a metastatic lesion. For now will hold off on any attempts towards doing a biopsy as patient does not seem inclined towards aggressive treatment. 3. Dysphagia-likely related to mediastinal adenopathy. He seems to be tolerating oral intake reasonably well here in the hospital. 4. Chronic hypoxic respiratory failure secondary to COPD-continue continuous oxygen at 2 liters/minute which is his baseline. Prednisone has also been tapered down to 20 mg daily. Likely could stop in the coming 1-2 days depending on how he is doing. Spiriva has been added and potentially an inhaled steroid could be abdomen prednisone stopped. 5. DVT prophylaxis-patient is currently on Lovenox. 6. Disposition-continue work with PT and OT. I did talk with patient about returning home and did not feel he would have enough support to return back home so we are looking at placement with case management. Objective: Vital Signs Temp Pulse Resp BP Pulse Ox 36.8 C 108 H 14 103/70 92 04/19/18 16:13 04/19/18 16:13 04/19/18 16:13 04/19/18 16:13 04/19/18 16:13 Laboratory Results 05/20/18 03:54 04/18/18 03:54 04/18/18 04/19/18 04/20/18 05:59 05:59 05:59 Intake Total 800 650 Output Total 1920 1270 800 Balance -1120 -620 -800 PT 13.8 SEC (12.0-15.0) 04/15/18 04:58 INR 1.04 (0.83-1.16) 04/15/18 04:58 ICD10 Worksheet Patient Problems: Problems Problem Status Onset COPD (chronic obstructive pulmonary disease) Acute Dehydration Acute Lung mass Acute Malnutrition Acute
--- NOTE | 2018-04-19 17:28 | ASMTCMCOM ---
CM Note CM Note Notes: Palliate care conference done with patient, son Augustine ([phone]), Leonard from Palliative Care, Annie from [facility] and myself. Son appointed MDPOA, MOST form done, [facility] 100 faxed with confirmed receipt. Email to Micheline Cole for senior living medicaid screening. Sue at [facility] aware and able to accept patient. Time spent with patient grater than 1 hour. Questions answered and emotional support given. Education regarding palliative process and shelter medicaid provided. CM to follow. Plan: To [facility] with palliative care from [facility] Date Signed: 04/19/2018 05:27 PM Electronically Signed By:Karen Roger RN
[2018-04-19] MEDS: SENNOSIDES 1 TAB PO SCH (20:57)
[2018-04-19] MEDS: LORazepam 2 MG/ML INJ IVP PRN (20:57)
[2018-04-20 05:02] LABS: PLATELET COUNT 263 10^3/uL (150-400)
[2018-04-20 08:29] VITALS: BP 164/92
[2018-04-20] MEDS: TIOTROPIUM INHALER 18 MCG/DOSE 5 DOSE/MDI IH SCH (09:37)
--- NOTE | 2018-04-20 10:47 | HOSPPROG ---
Hospitalist Progress Note Assessment/Plan: Lung mass - biopsy results pending. CT pers reviewed / interpreted, 7.0 cm mediastinal mass compressing esophagus. Endoscopic biopsy done, suspect malignancy. The patient is not inclined towards any treatment at this point time and has plans for d/c on palliative / hospice. Hepatic lesion- suspect mets or primary source possible. Deferring biopsy as pt does not want aggressive tx. Dysphagia - likely related to mediastinal adenopathy. CHRF 2/2 COPD - on 2 LPM at baseline. Taper off Pred. Add spiriva, inhaled steroid at dc. DVT prophylaxis-patient is currently on Lovenox. Disposition-continue work with PT and OT. D/C to SNF, hospice planned. Objective: Vital Signs Temp Pulse Resp BP Pulse Ox 36.9 C 104 H 20 164/92 H 97 04/20/18 08:26 04/20/18 09:36 04/20/18 09:36 04/20/18 08:26 04/20/18 09:36 Laboratory Results 04/20/18 04:17 04/20/18 04:17 04/19/18 04/20/18 04/21/18 05:59 05:59 05:59 Intake Total 650 650 Output Total 1270 1400 220 Balance -620 -750 -220 PT 13.8 SEC (12.0-15.0) 04/15/18 04:58 INR 1.04 (0.83-1.16) 04/15/18 04:58 ICD10 Worksheet Patient Problems: Problems Problem Status Onset COPD (chronic obstructive pulmonary disease) Acute Dehydration Acute Lung mass Acute Malnutrition Acute
[2018-04-20] MEDS: NICOTINE 21 MG/24 HR PATCH TD SCH (11:25)
[2018-04-20] MEDS: POLYETHYLENE GLYCOL 3350 17 GM PKT PO SCH (11:27)
[2018-04-20] MEDS: predniSONE 20 MG TAB PO SCH (11:27)
[2018-04-20] MEDS: ENOXAPARIN 40 MG/0.4 ML SYR SC SCH (11:27)
[2018-04-20] MEDS: morphINE SR 15 MG TAB PO SCH (11:27)
--- NOTE | 2018-04-20 11:27 | PDIAF ---
- Diagnosis Diagnosis: suspected lung cancer Code Status: Do Not Resuscitate - Medication Management Discharge Medications: Medications to Continue on Transfer Acetaminophen [Tylenol Rectal] 650 mg OH Q4HRS PRN #0 supp 04/20/18 [Last Taken Unknown] Albuterol [Proventil Inhaler HFA (*)] 2 puffs IH Q4HRS PRN #1 mdi 04/20/18 [ Last Taken Unknown] Magnesium Citrate [Magnesium Citrate 300 ml (*)] 300 ml PO DAILY PRN #300 bottle 04/20/18 [Last Taken Unknown] Nicotine [Nicoderm Cq 21 mg (*)] 21 mg TD DAILY #30 patch 04/20/18 [Last Taken Unknown] Polyethylene Glycol 3350 [Miralax 17 gm (*)] 17 gm PO DAILY PRN #30 pkt [Last Taken Unknown] Sennosides [Senokot] 1 tab PO HS #30 tab 04/20/18 [Last Taken Unknown] Tiotropium Inhaler [Spiriva Handihaler] 18 mcg IH DAILY #30 mdi 04/20/18 [Last Taken Unknown] morphINE SR [Ms Contin/Oramorph 15 mg (*)] 15 mg PO BID #60 tab 04/20/18 [Last Taken Unknown] morphINE [Roxanol 10 mg/0.5 ml oral soln (*)] 10 mg PO Q2 #30 ml 04/20/18 [Last Taken Unknown] Discharge Medications: Refer to the Discharge Home Medication list for PRN reason. PICC Care - Routine: N/A - Orders Services needed: Registered Nurse, Physical Therapy, Occupational Therapy Oxygen: 2 LPM Diet Recommendation: no restrictions on diet Diet Texture: Regular Texture Diet, Thin Liquids, Meds Whole w/Liquids Additional Instructions: Palliative care with possible transition to hospice - Follow Up Care Current Providers and Referrals: Patient,NotPresent [Unknown] - As per Instructions
--- NOTE | 2018-04-20 20:26 | GDS ---
[f rep st] DISCHARGE SUMMARY DISCHARGE DIAGNOSES: 1. Mediastinal lung mass, likely lung cancer. Pathology pending. 2. Hepatic lesion, suspicious for metastatic disease. 3. Dysphagia. 4. Chronic hypoxemic respiratory failure, on 2 L of oxygen at baseline. 5. Chronic obstructive pulmonary disease. CONSULTANTS: 1. Dr. Carreno, Gastroenterology. 2. Dr. Moreno Dueñas, Pulmonology. 3. Dr. Maverick Seth, Gastroenterology. 4. Dr. Dung Pérez, Oncology. PROCEDURES: EGD with biopsy of mediastinal mass using endoscopic ultrasound fine-needle aspiration, performed April 16, 2018, by Dr. Maverick Seth. HISTORY OF PRESENT ILLNESS: For details, please see history and physical dated April 15, 2018. In [facility], Mr. Westbrook is a 67-year-old male who has a long history of chronic tobacco and alcohol use, who pre sented to the emergency department with shortness of breath. CT scan was performed, and a large righ t upper mediastinal lung mass was noted, which was compressing the esophagus. The patient was admitt ed to the hospital for further evaluation. HOSPITAL COURSE: The patient was admitted to the Oncology Unit for presumed lung cancer. His dyspha agnes was caused by compression of the esophagus from the mediastinal mass. A GI consult was obtained. The patient underwent EGD with biopsy. Pathology results remain pending. Oncology consult was als o obtained and, in the setting of weight loss, cachexia, lung and liver masses, primary lung cancer i s suspected. Liver lesion was also noted on CT imaging, which could be metastatic disease versus [facility] i[facility] liver tumor. The patient repeatedly stated to several physicians, including myself and the onco logist, that he does not want any further treatments or invasive investigations. He expressed inter est in the right to legislation. This is obviously not offered during his inpatient stay, though he certainly could follow up as an outpatient. Palliative care consult was obtained, and ultimately the patient will discharge to [facility] facility with palliative care, and likely transition t o hospice care. His pain is controlled with morphine, and he is given a prescription for MS Contin, Roxanol, as well as Ativan at discharge. DISPOSITION: Patient is discharged to [facility] facility with palliative care and likely trans ition to hospice. DISCHARGE MEDICATIONS: Please see CheckInPage for completed outpatient medication list. New medication s on discharge include: 1. Tylenol 650 p.o. q.4 hours p.r.n. 2. Albuterol 2 puffs inhaled q.4 hours p.r.n. 3. Mag citrate 300 mL daily p.r.n. constipation. 4. MS Contin 15 mg p.o. twice daily, #60, no refills. 5. Roxanol 10 mg p.o. q.2 hours, #30 mL, no refills. 6. Spiriva 18 mcg inhaled, #1, no refills. 7. Nicoderm patch 21 mg daily, #30, no refills. 8. MiraLAX 17 g daily p.r.n., #30, no refills. 9. Senokot 1 tab p.o. at bedtime, #30, no refills. Aspirin is discontinued at discharge. FOLLOWUP: Pathology results remain pending, and can be followed up by his palliative post acute care registered nurse, although it is noted the patient desires no further treatment or intervention, and hospice is approp tiffany based on his wishes. /[id number]/MODL
--- NOTE | 2018-04-21 11:17 | ASDISCHSUM ---
Discharge Information Plan Status: Medically Cleared to Leave: Discharge Date:04/20/2018 01:28 PM D/C Disposition: ADT D/C Disposition:Correction Facility Projected Discharge Date:04/20/2018 11:00 AM Transportation at D/C: Discharge Delay Reason: Follow-Up Date:04/20/2018 11:00 AM Discharge Slot: Final Diagnosis: Placement Information Referral Type:*Custodial/SNF Referral ID:[id number] Provider Name:[facility] Address 1:[address] Address 2: City:[place] Selection Factors: State:[place] Referral Type:Palliative Care Referral ID:[id number] Provider Name:[facility] Address 1:[address] Phone Number: Address 2: Fax Number: [facility]:[place] Selection Factors: State:[place] Patient Contact Information Contact Name:ASHLEY Relationship:Sister Address: Home Phone: City: Alternate Phone: State/Zip Code:[place] Email: Financial Information Financial Class:Medicare Primary Plan Desc:MEDICARE INPATIENT Primary Plan Number:[id number] Secondary Plan Desc:MED[place] Secondary Plan Number:[id number] Assessment Information [facility] CM Progress Note CM Note CM Note Notes: Pt presented to the ED via EMS for left sided chest pain, SOB, difficulty eating, insatiable appetite, intermittent fevers and chills, and weakness. Pt has not seen a medical provider in more than 20 years except for when he had cataracts surgery about 10 yrs ago. Pt's chest xray and CT scan showed a large right upper mass that might be primary bronchogenic carcinoma. Pt admitted for lung mass, hypoxia, COPD, malnutrition and dehydration. Spoke with patient and he states he lives alone in [place] and hasn't seen a doctor since he was 16 years old and in the [employer] (pt was in the [employer] for 3 yrs and states he chooses not to utilize the VA and so doesn't know if there would be any benefits available to him). Pt states he has a son and [id number] who live in [place]. He says he's in contact w/his D.I.L. at least once a week but that he doesn't want to contact them right now. Pt did not want to list either of them as emergency contacts at this time. Pt said his sister, Carol Westbrook ([phone]) (she lives in [place]) could be listed as Emergency Contact and that she would then communicate to his other family as needed . Pt did not want to contact Carol at this time. Listened as patient expressed his frustration with getting an MRI, "What's the point? I'm probably not going to even get a biopsy, because what would the point be?" We discussed that the imaging might be able to provide helpful information for prognosis, treatment options and if anything, to possibly rule out additional metastatic growth. Pt responded "well I'm not going to do anything about it anyway." We discussed his feelings surrounding the situation he is in and the recent news he received. Pt made statements such as "I did this to myself, I wore myself out. I smoked for 55 years and now here I am. I knew what you guys were going to tell me before I even came here. I am not shocked. It is what it is. None of us want to but we do." The patient also mentioned several times that he "wouldn't want to be kept alive" if treatment was futile. Pt stated he does not have an Advance Directive, MDPOA or Living Will. This CM offered to discuss, provide information and assist with completing an MDPOA but pt was not open to discussing this at this time, although he did state he wouldn't want his sister, Carol, to be MDPOA and that he most likely would want his son to be MDPOA. Patient also stated he "might not even give them a chance to have to make those decisions." This CM asked pt if he would explain what he was alluding to and pt stated "there are ways. Like jumping off a bridge." This CM offered to have someone from our Spiritual Services team to come and talk with him and pt stated "no, I'm not rastafari." This CM explained that their support would not be rastafari if he didn't want it to be and pt still declined at this time. Pt presents unkempt, frail. Pt mentioned that he didn't think he could return to live in his home and that "I need to go to a facility." Pt states he simply can't take care of his home anymore, it doesn't have AC, and that he is having increasing difficulty caring for himself. Pt mentioned he was incontinent last night but is able to ambulate independently. Pt has advanced emphysema, doesn't not use home oxygen and still smokes 8-10 cigarettes a day. Anticipate further workup from oncology and pulmonology consults. OT/WEB MERCHANDISER orders placed. Also discussion re: CODE status, MDPOA. Possible need for SNF, HC, Palliative Care, Hospice, etc....depending on prognosis and pt's wishes. CM to follow. Date Signed: 04/15/2018 02:49 PM Electronically Signed By:Salena Lovett RN LACE LACE Acuity / Level of Answers: Yes Care: Did the patient have an inpatient admission? Comorbidities - select Answers: Any tumor (including all that apply lymphoma or leukemia) Chronic pulmonary disease # of Emergency department Answers: 1-2 visits in the last 6 months Social determinants Answers: Lack of community resources and/or lack of social support (no pcp, lives alone, transportation, shane d) Score: 12 Date Signed: 04/15/2018 02:51 PM Electronically Signed By:Salena Lovett RN [facility] CM Progress Note CM Note CM Note Notes: Met w/pt to discuss dc options. He stated that he would need facility to go to as he cannot manage at home alone. He stated that he does have some friends/family local but they are not really able to be around and help. Pt said he would consider [facility]. He said that he would need half-way care and stated "because I am dying". He is still being worked up; bx and CT scan today. Discussed case w/Sue from [facility]; she was not able to meet w/pt as he was in procedure. CM will follow. Date Signed: 04/16/2018 05:40 PM Electronically Signed By:Felicia Soni RN [facility] Progress Note CM Note CM Note Notes: CM spoke with Sue at [facility] early in the day results and informed her around 1400 needs are TBD and asked Sue to check in with CM prior to contacting the patient. CM spoke with Ani THOMAS, bx results preliminary positive, suspect lung CA. Ani shares sister Carol lives out of state [phone] and informed RN her son found a suicide note at patients home. CM did not get to speak with patient today. PT/OT ordered. CM to follow. Date Signed: 04/17/2018 03:08 PM Electronically Signed By:Cristina Baltazar [facility] CM Progress Note CM Note CM Note Notes: Chart reviewed for dc planning purposes. Met with patient who states he does not want treatment to prolong his life. He has a son Augustine who would be his contact worker and likely [facility]. I will ask [employer] services to assist with that process. Biopsy of lung pending. Palliative care pending. Will need SNF/Hospice. Plan: TBD Date Signed: 04/19/2018 11:04 AM Electronically Signed By:Karen Roger RN [facility] CM Progress Note CM Note CM Note Notes: Leonard from Palliative is going to [facility] for meeting at 2:30 today as Tyrel's son Augustine will be visiting at that time. I conveyed this information to Tyrel as well. Spoke with Sue from [facility] and she states she is willing to accept patient. CM to follow Date Signed: 04/19/2018 11:38 AM Electronically Signed By:Karen Roger RN [facility] Progress Note CM Note CM Note Notes: Palliate care conference done with patient, son Augustine ([phone]), Leonard from [facility], Annie from [facility] and myself. Son appointed [facility], MOST form done, [facility] faxed with confirmed receipt. Email to Micheline Cole for senior care medicaid screening. Sue at [facility] aware and able to accept patient. Time spent with patient grater than 1 hour. Questions answered and emotional support given. Education regarding palliative process and half-way medicaid provided. CM to follow. Plan: To [facility] with palliative care from [facility] Date Signed: 04/19/2018 05:27 PM Electronically Signed By:Karen Roger RN Case Management Discharge Plan Note Case Management Discharge Discharge Order Complete? Answers: Yes Patient to Obtain Answers: Other Notes: [facility] Medications Transportation Arranged Answers: Other Notes: van Transport will Pick (Date 04/20/2018 01:00 AM & Time) Faxed Final Orders Answers: Yes Family Notified Answers: Yes Discharge Comments Notes: Pt will dc today to [facility]. Spoke w/Sue at and they are ready to accept and they are fine with LT Medicaid john pending and will follow up with this there. He will be followed by [facility]. Left voicemail for Annie w/[facility]. Sue alarcon w/pt's son, Augustine who will meet pt here at [facility] prior to dc. CM met w/pt to discuss and he was in agreement w/dc plan. Date Signed: 04/20/2018 12:24 PM Electronically Signed By:Felicia Soni RN Intervention Information Intervention Type:Emotional Support Date of Service:04/15/2018 02:52 PM Patient Type:Inpatient Staff Member:WILLIAM Lovett [place] Hours:0.5 Discipline:Coding Machine Operator Severity: Comment: Intervention Type:Locating Emergency Contact Date of Service:04/15/2018 02:52 PM Patient Type:Inpatient Staff Member:WILLIAM Lovett [place] Hours:0.25 Discipline:Coding Machine Operator Severity: Comment: Intervention Type:Advance Directive Date of Service:04/15/2018 02:52 PM Patient Type:Inpatient Staff Member:WILLIAM Lovett [place] Hours:0.25 Discipline:Coding Machine Operator Severity: Comment:Initiated conversation, offered to ass ist with completing, discussed importance, etc. Intervention Type:*IM-Signed Date of Service:04/20/2018 11:40 AM Patient Type:Inpatient Staff Member:Sheila Galdamez Hours: Discipline: Severity: Comment:
--- NOTE | 2018-04-23 11:11 | PQFORM ---
PHYSICIAN QUERY FORM Needs Your Response This query form is being sent to you to assure this patient record is coded properly. Please respond to the question below: DOUGH MIXER HELPER QUESTION: Dear Dr. Simon, In reviewing this patient medical record it was noted the patient had the diagnosis of 'malnutrition.' Patient presented to the ER thin and frail and later diagnosed with 'malnutrition.' H&P notes patient had 'significant weight loss w/ Dysphagia.' In Dr. Pérez's 04/17 Consultation patient had the diagnosis of 'Cachexia with weight loss.' In the 04/16 Hospitalist progress note patient was diagnosed with 'SPMC w/ BMI 18,' along with 'unintentional weight loss.' In the 04/18 SOAP note patient had 'weight loss w/ cachexia.' Dietary assessment states patient has 'mild malnutrition in context of chronic disease.' After Study can the diagnosis of Malnutrition be further specified as? Mild Protein calorie malnutrition Moderate protein calorie malnutrition __x___ Severe protein calorie malnutrition Unspecified protein calorie malnutrition Unable to determine Other more appropriate diagnosis (please specify) Thank you LEYLA Estrella HIM/Coding Dept. [phone] INSTRUCTIONS FOR RESPONSE: Answer question by clicking on the "Edit Document" button. Move cursor to area below the stars. When complete, hit "Save." Click on the "Sign" button, then click "Sign" again. Type in your PIN and hit "Enter." MTDD
== END 2018-04-20 13:28 | DRG 180 ==
LOC: F1N 14:02
PROVIDERS: ADMIT Family Medicine; ATTEND Family Medicine
PROC: 0WBC4ZX Excision of Mediastinum, Percutaneous Endoscopic Approach, Diagnostic (ICD-10-PCS; principal; 2018-04-16 16:30)
PROC: 0DB48ZX Excision of Esophagogastric Junction, Via Natural or Artificial Opening Endoscopic, Diagnostic (ICD-10-PCS; principal; 2018-04-16 16:30)
PROC: 0DB68ZX Excision of Stomach, Via Natural or Artificial Opening Endoscopic, Diagnostic (ICD-10-PCS; principal; 2018-04-16 16:30)
DX: C34.11 Malignant neoplasm of upper lobe, right bronchus or lung (principal); E43 Unspecified severe protein-calorie malnutrition; C38.3 Malignant neoplasm of mediastinum, part unspecified; J96.11 Chronic respiratory failure with hypoxia; R13.10 Dysphagia, unspecified; E86.0 Dehydration; F41.9 Anxiety disorder, unspecified; J43.9 Emphysema, unspecified; Z66 Do not resuscitate; Z72.0 Tobacco use
CPT/HCPCS: 92610-GN; 97110-GP; 97116-GP; 97162-GP; 97165-GO; 97535-GO; A9585; G8978-GP-CK; G8979-GP-CJ; G8987-GO-CK; G8988-GO-CJ; G8996-GN-CI; G8997-GN-CI; G8998-GN-CI; J0330; J1170; J1650; J2060; J2250; J2370; J2405; J2704; J3010; J3360; J7512; Q9967